=== PATIENT | female | born 1980 | race Caucasian/White ===

== ENCOUNTER 2021-07-02 07:25 | Emergency (ER) | payer OTHER, SELFPAY ==
--- NOTE | ~2021-07-02 | US_ITS ---
EXAMINATION: US PELVIS CLINICAL INFORMATION: Pelvic pain. Question ruptured ovarian cyst. COMPARISON: None. TECHNIQUE: Ultrasound of the pelvis is performed using both transabdominal and transvaginal transducers along with Doppler. Transvaginal imaging is performed due to inadequate visualization transabdominally. FINDINGS: Uterus: The uterus is anteverted anteflexed and measures 7.6 cm in length, 3.9 mL in AP and 5.5 cm in transverse dimension. The double wall endometrial thickness is 0.9 cm. The uterus is smooth in contour and has normal myometrial echogenicity. No visible fibroid. There are small nabothian cysts seen in the cervix. Adnexa: Both ovaries are visualized. There is normal color flow to the adnexa. There is no ovarian torsion. There is no pelvic ascites or fluid collection. Right ovary measures 4.2 x 2.6 x 2.9 cm and volume 16.6 mL. There is anechoic cyst measuring 2.7 x 2.0 x 2.3 cm. There is normal arterial and venous vascular flow seen on Doppler exam. Left ovary measures 3.0 x 2.0 x 1.6 cm and volume 7.7 mL. There is normal arterial and venous flow seen on Doppler exam. There is a small amount of free fluid surrounding the left adnexa and posterior uterus. US/US pelvic and transvaginal IMPRESSION: Small anechoic cyst right ovary likely corpus luteal cyst. Unremarkable left ovary and uterus. Small amount of free fluid in the left adnexa. Normal vascular flow seen to both ovaries.
--- NOTE | ~2021-07-02 | US_ITS ---
EXAMINATION: US PELVIS CLINICAL INFORMATION: Pelvic pain. Question ruptured ovarian cyst. COMPARISON: None. TECHNIQUE: Ultrasound of the pelvis is performed using both transabdominal and transvaginal transducers along with Doppler. Transvaginal imaging is performed due to inadequate visualization transabdominally. FINDINGS: Uterus: The uterus is anteverted anteflexed and measures 7.6 cm in length, 3.9 mL in AP and 5.5 cm in transverse dimension. The double wall endometrial thickness is 0.9 cm. The uterus is smooth in contour and has normal myometrial echogenicity. No visible fibroid. There are small nabothian cysts seen in the cervix. Adnexa: Both ovaries are visualized. There is normal color flow to the adnexa. There is no ovarian torsion. There is no pelvic ascites or fluid collection. Right ovary measures 4.2 x 2.6 x 2.9 cm and volume 16.6 mL. There is anechoic cyst measuring 2.7 x 2.0 x 2.3 cm. There is normal arterial and venous vascular flow seen on Doppler exam. Left ovary measures 3.0 x 2.0 x 1.6 cm and volume 7.7 mL. There is normal arterial and venous flow seen on Doppler exam. There is a small amount of free fluid surrounding the left adnexa and posterior uterus. US/US pelvic ovarian doppler IMPRESSION: Small anechoic cyst right ovary likely corpus luteal cyst. Unremarkable left ovary and uterus. Small amount of free fluid in the left adnexa. Normal vascular flow seen to both ovaries.
[2021-07-02 07:38] VITALS: BP 136/92; PULSE 88; RESP 16; TEMP 36.1; O2SAT 99; BMI 34.9
[2021-07-02 08:00] LABS: MANUAL DIFF FLAG NO
[2021-07-02 08:01] LABS: Basophils Percent Auto 0.3 % (0-2); Eosinophils Absolute Auto 0.2 X10*3/uL (0.0-0.4); Eosinophils Percent Auto 2.7 % (0-4); Hematocrit 42.1 % (37.0-47.0); Hemoglobin 14.4 g/dl (12.0-16.0); Imm Gran Abs Auto 0.02 X10*3/uL (0.00-0.03); Imm Gran Pct Auto 0.3 % (0.0-0.4); Lymphocytes Absolute Auto 1.9 X10*3/uL (1.2-4.9); Lymphocytes Percent Auto 25.9 % (20-40); Mean Corpuscular HGB Conc 34.2 g/dl (31.0-35.0); Mean Corpuscular Hemoglobin 30.4 pg (27.0-33.0); Mean Corpuscular Volume 88.8 fL (80.0-98.0); Mean Platelet Volume 11.6 fL (9.4-12.3); Monocytes Absolute Auto 0.5 X10*3/uL (0.1-1.2); Monocytes Percent Auto 6.4 % (2-11); Neutrophils Absolute Auto 4.7 x10*3/uL (2.0-8.3); Neutrophils Percent Auto 64.4 % (45-73); Platelet Count 252 X10*3/uL (160-400); Red Blood Count 4.74 X10*6/uL (4.20-5.50); Red Cell Distribution Width 12.8 % (11.0-16.0); White Blood Count 7.3 X10*3/uL (4.8-10.8)
[2021-07-02 08:02] LABS: Appearance Urine HAZY; Color Urine YELLOW; Glucose Urine UA NEG (NEG); Leukocyte Esterase Urine NEG (NEG); Nitrite Urine NEG (NEG); PH 5.5 (5.0-8.0); Specific Gravity - Urine >= 1.030 (1.005-1.025); UACC Culture Trigger NO; Urine Blood 1+ (NEG); Urine Ketones NEG (NEG); Urine Protein NEG (NEG-TRACE)
[2021-07-02 08:06] LABS: UPreg QC Valid YES; Urine Pregnancy NEGATIVE (NEGATIVE)
[2021-07-02 08:14] LABS: Mucus Urine TRACE /LPF; RBC Urine 0-2 /HPF (0); Squamous Epithelial Cell Urine TRACE /LPF; WBC Urine 0 /HPF (0-4)
[2021-07-02 08:21] LABS: Alanine Aminotransferase 27 U/L (0-31); Albumin Level 4.7 g/dL (3.5-5.0); Alkaline Phosphatase 55 U/L (39-117); Anion Gap 14 (12-20); Aspartate Amino Transferase 19 U/L (5-31); Bilirubin Total 0.5 mg/dL (0.0-1.0); Blood Urea Nitrogen 15 mg/dL (9-16); Calcium 10.6 mg/dL (8.4-10.2); Carbon Dioxide 25 mmol/L (22-29); Chloride 102 mmol/L (96-108); Creatinine Clr Calc Pharmacy 99.5; Estimated Glomerular Filt Rate > 60; Glucose Random 116 mg/dL (60-115); Lipase 22 U/L (8-78); Potassium 4.4 mmol/L (3.3-5.1); Sodium 137 mmol/L (135-145); Total Protein 7.9 g/dL (6.5-8.0)
--- NOTE | 2021-07-02 09:08 | ED.ABDPAIN ---
HPI - Abdominal Pain General Chief Complaint: Abdominal Pain Stated Complaint: abd pain Time Seen by Provider: 07/02/21 08:43 Source: patient Mode of arrival: ambulatory Limitations: no limitations History of Present Illness HPI narrative: Patient is a 40-year-old female with a past medical history of GERD and migraines. She presents emergency department for evaluation of diffuse lower abdominal pain. She reports onset of lower abdominal pain to be about 2 hours ago, which was 15 minutes after having sexual intercourse. The pain has been constant but varying in intensity. It is described as cramping in nature and she feels pressure when sitting. Certain positions seem to make the pain worse at times. Pain radiates throughout her abdomen into the bilateral upper legs. Pain is currently a 6/10. There has been some associated nausea but no vomiting. Denies fevers, chills, dysuria, urinary frequency/urgency/hesitancy/abnormal vaginal bleeding/abnormal vaginal discharge. Denies possibility of , reports 1 single partner who is s/p vasectomy, she is not on any form of contraception. Denies any prior concerns of dyspareunia, prior sexually transmitted infection, nor concerns for current sexually transmitted infection. Denies possibility of foreign body within the vaginal canal after intercourse. Last menstrual period was approximately 3 weeks ago, and states her next is due within 1 week. Related Data Allergies Allergy/AdvReac Type Severity Reaction Status Date / Time Iodinated Contrast Media Allergy Anaphylaxis Verified 07/02/21 07:44 Review of Systems Review of Systems Constitutional : No Weight loss, No Fever, No Chills ENT/Mouth :? No sore throat, No Rhinorrhea Eyes: No Swelling, No Redness Cardiovascular : No Chest Pain, No SOB, No Edema Respiratory : No Cough, No Sputum, No Wheezing Gastrointestinal : Positive Nausea, no Vomiting, no Diarrhea, positive abdominal pain, No Hematochezia, No Melena Genitourinary : No Dysuria, No Urinary Frequency, No Hematuria, No Urgency? Musculoskeletal : No joint pain, No Myalgias, No Joint Swelling Skin : No Skin Lesions, No rash Neuro : No Weakness, No Numbness, No Dizziness, No Headache Psych : No Anxiety/Panic, No Depression Heme/Lymph: No Bruising, No Lymphadenopathy Endocrine : No Polyuria, No Polydipsia All other systems reviewed and are negative. [facility] Past Medical History Attestation statement: The following information was validated with the patient. Source: old records reviewed Medical History GERD (gastroesophageal reflux disease) Migraine Social History Social History Alcohol intake: current Alcohol intake frequency: holidays/special occasions only Patient Tobacco Use Status: Never used Tobacco Use of substances other than those prescribed or required for medical reasons: No Advance Directives: No Advance Directives Information Provided: No Patient : No Physical Exam ED Vital Signs: Vital Signs - 24 hr 07/02/21 07:38 07/02/21 12:00 07/02/21 14:00 Temperature 97.0 F 99.0 F 98.1 F Pulse Rate 88 75 75 Respiratory Rate 16 18 18 Blood Pressure 136/92 H 114/49 L 127/67 Pulse Oximetry 99 98 100 BMI result Body Mass Index 34.9 Vital signs have been reviewed as normal and appeared to be correct. Blood pressure normal.? Heart rate normal.? Respiration rate normal. Temperature normal.? Oxygen saturation normal. Appearance: Alert.?Oriented to person, place and time. No acute distress.?Normal affect. Eyes: Pupils equal, round and reactive to light.? ENT: Pharynx normal.?? Neck: Normal inspection.? Neck supple.?? CVS: Heart sounds normal. Normal heart rate and rhythm.? Pulses normal.?? Respiratory: No respiratory distress.? Lung sounds clear to auscultation bilaterally?? Abdomen: Soft with diffuse lower abdominal suprapubic tenderness. Normoactive bowel sounds. No pulsatile mass.?? Genitourinary:? Supervised by Ifrah EASLEY. Normal external appearance of urethra.? No lesions/lacerations or discharge or tenderness noted. No Bartholin cyst noted.? Speculum exam: normal appearance/palpation of vagina normal. No abnormal vaginal discharge, swelling, erythema, laceratons, or active bleeding noted.?No foreign bodies noted.? No vaginal tenderness noted.? Normal appearance of cervix. Normal palpation of cervix.? Cervical os is closed.? No abnormal cervical discharge noted.? No cervical lesion/mass.?? No cervical motion tenderness noted.? Negative chandelier sign.? Normal bimanual exam.? Uterine size normal. Uterine consistency normal.? Bladder normal to palpation. Normal adnexa. Normal rectovaginal exam. Skin: Skin warm and dry.? Normal skin color.? Normal skin turgor.?? Extremities: No lower extremity edema.? Neuro: Moves all extremities spontaneously. Sensation intact bilaterally. CN II-XII intact. No focal neuro deficits. Ambulates with normal steady gait. Course Course Course Narrative: Patient is a 40-year-old female being evaluated for lower abdominal pain. History physical exam are not consistent with appendicitis given no rebound tenderness, not consistent with diverticulitis given no fever/ chills/ diarrhea/ bloody or mucous stools. Not consistent with GI bleed, AAA, ectopic , hernia, bowel obstruction. Would not completely exclude nephrolithiasis though it is less likely at this time. Will obtain pelvic ultrasound to evaluate for ruptured ovarian cyst or possible ovarian torsion. Will perform pelvic examination as discussed with patient, though she would like to wait until pain is improved. Patient to receive IV Zofran for nausea, IV Toradol for pain, and 1 L IV normal saline. Disposition will be pending results. Reevaluation(s) Reevaluation #1: CBC and BMP are overall unremarkable. Urinalysis is free from infection although there is the presence of 1+ blood in the setting of no menstrual bleeding, urine test is negative. Pelvic and bimanual exam without any abnormal findings. Bacteril Vaginosis panel specimen obtained. Patient offered Chlamydia and gonorrhea testing but declined. Pain has improved after medicated, currently 3/10. Ultrasound results are pending at this time. Time: 10:16 Reevaluation #2: Contacted Radiology as ultrasound report still pending at this time, advised that ultrasound is awaiting signature. Continues to be well-appearing, afebrile, vitals stable, without any acute concerns. Time: 14:05 Reevaluation #3: Ultrasound reveals a small cyst of right ovary and a small amount of free fluid in the left adnexa otherwise unremarkable, no concern for ovarian torsion. Discussed all lab result and image results findings with patient and her . Advise that the cause of her symptoms are unclear at this time. Advised that she could follow-up with display manager for persistent symptoms however patient declines referral at this time states she would rather follow up with her primary care provider, advised her to contact the office to scheduled follow-up visit in 1-3 days. Discussed that she may utilize Tylenol or ibuprofen as needed for discomfort. Offered prescription for antiemetic however patient declined. Discussed reasons to return to the emergency department including fevers, chills, nausea, vomiting, severe worsening abdominal/pelvic pain, abnormal vaginal bleeding or discharge, urinary symptoms. Advised that bacterial vaginosis panel is still pending at this time, should the result is positive she will receive a follow-up phone call, will not prophylactically treat at this time given low suspicion. Patient is agreeable with plan of care. Time: 15:51 MDM - Abdominal Pain Medical Records Attestation: I reviewed the patient's medical records. Lab Data Attestation: I reviewed the patient's lab results. Result diagrams: 07/02/21 07:48 07/02/21 07:48 Labs: Lab Results 07/02/21 07/02/21 07/02/21 Range/Units 07:48 07:48 07:55 WBC 7.3 (4.8-10.8) X10*3/uL RBC 4.74 (4.20-5.50) X10*6/uL Hgb 14.4 (12.0-16.0) g/dl Hct 42.1 (37.0-47.0) % MCV 88.8 (80.0-98.0) fL MCH 30.4 (27.0-33.0) pg MCHC 34.2 (31.0-35.0) g/dl RDW 12.8 (11.0-16.0) % Plt Count 252 (160-400) X10*3/uL MPV 11.6 (9.4-12.3) fL Immature Gran % (Auto) 0.3 (0.0-0.4) % Neut % (Auto) 64.4 (45-73) % Lymph % (Auto) 25.9 (20-40) % [place] % (Auto) 6.4 (2-11) % Eos % (Auto) 2.7 (0-4) % Baso % (Auto) 0.3 (0-2) % Lymph # (Auto) 1.9 (1.2-4.9) X10*3/uL [place] # (Auto) 0.5 (0.1-1.2) X10*3/uL Eos # (Auto) 0.2 (0.0-0.4) X10*3/uL Baso # (Auto) 0.0 (0.0-0.2) X10*3/uL Abs Immat Gran (auto) 0.02 (0.00-0.03) X10*3/uL Absolute Neuts (auto) 4.7 (2.0-8.3) x10*3/uL Absolute Nucleated RBC 0.000 (0.0-0.012) X10*3/uL Nucleated RBC % (auto) 0.0 (0.0-0.2) /100WBC Sodium 137 (135-145) mmol/L Potassium 4.4 (3.3-5.1) mmol/L Chloride 102 (96-108) mmol/L Carbon Dioxide 25 (22-29) mmol/L Anion Gap 14 (12-20) BUN 15 (9-16) mg/dL Creatinine 0.96 (0.5-1.4) mg/dL Estim Creat Clear Calc 99.5 Estimated GFR > 60 Random Glucose 116 H (60-115) mg/dL Calcium 10.6 H (8.4-10.2) mg/dL Total Bilirubin 0.5 (0.0-1.0) mg/dL AST 19 (5-31) U/L ALT 27 (0-31) U/L Alkaline Phosphatase 55 (39-117) U/L Total Protein 7.9 (6.5-8.0) g/dL Albumin 4.7 (3.5-5.0) g/dL Lipase 22 (8-78) U/L Urine Color YELLOW Urine Appearance HAZY Urine pH 5.5 (5.0-8.0) Ur Specific Morton >= 1.030 H (1.005-1.025) Urine Protein NEG (NEG-TRACE) MG/DL Urine Glucose (UA) NEG (NEG) MG/DL Urine Ketones NEG (NEG) MG/DL Urine Blood 1+ H (NEG) Urine Nitrite NEG (NEG) Ur Leukocyte Esterase NEG (NEG) Urine RBC 0-2 (0) /HPF Urine WBC 0 (0-4) /HPF Ur Squamous Epith Cells TRACE /LPF Urine Bacteria NONE /LPF Urine Mucus TRACE /LPF Urine Test (NEGATIVE) 07/02/21 Range/Units 07:55 WBC (4.8-10.8) X10*3/uL RBC (4.20-5.50) X10*6/uL Hgb (12.0-16.0) g/dl Hct (37.0-47.0) % MCV (80.0-98.0) fL MCH (27.0-33.0) pg MCHC (31.0-35.0) g/dl RDW (11.0-16.0) % Plt Count (160-400) X10*3/uL MPV (9.4-12.3) fL Immature Gran % (Auto) (0.0-0.4) % Neut % (Auto) (45-73) % Lymph % (Auto) (20-40) % [place] % (Auto) (2-11) % Eos % (Auto) (0-4) % Baso % (Auto) (0-2) % Lymph # (Auto) (1.2-4.9) X10*3/uL [place] # (Auto) (0.1-1.2) X10*3/uL Eos # (Auto) (0.0-0.4) X10*3/uL Baso # (Auto) (0.0-0.2) X10*3/uL Abs Immat Gran (auto) (0.00-0.03) X10*3/uL Absolute Neuts (auto) (2.0-8.3) x10*3/uL Absolute Nucleated RBC (0.0-0.012) X10*3/uL Nucleated RBC % (auto) (0.0-0.2) /100WBC Sodium (135-145) mmol/L Potassium (3.3-5.1) mmol/L Chloride (96-108) mmol/L Carbon Dioxide (22-29) mmol/L Anion Gap (12-20) BUN (9-16) mg/dL Creatinine (0.5-1.4) mg/dL Estim Creat Clear Calc Estimated GFR Random Glucose (60-115) mg/dL Calcium (8.4-10.2) mg/dL Total Bilirubin (0.0-1.0) mg/dL AST (5-31) U/L ALT (0-31) U/L Alkaline Phosphatase (39-117) U/L Total Protein (6.5-8.0) g/dL Albumin (3.5-5.0) g/dL Lipase (8-78) U/L Urine Color Urine Appearance Urine pH (5.0-8.0) Ur Specific Morton (1.005-1.025) Urine Protein (NEG-TRACE) MG/DL Urine Glucose (UA) (NEG) MG/DL Urine Ketones (NEG) MG/DL Urine Blood (NEG) Urine Nitrite (NEG) Ur Leukocyte Esterase (NEG) Urine RBC (0) /HPF Urine WBC (0-4) /HPF Ur Squamous Epith Cells /LPF Urine Bacteria /LPF Urine Mucus /LPF Urine Test NEGATIVE (NEGATIVE) Imaging Data pelvic US: Radiologist's impression: IMPRESSION: Small anechoic cyst right ovary likely corpus luteal cyst. ? Unremarkable left ovary and uterus. ? Small amount of free fluid in the left adnexa. Normal vascular flow seen to both ovaries. Discharge Plan Discharge Clinical Impression: Pelvic pain Patient Disposition: Home, Self-Care Additional Instructions: You were evaluated in the emergency department for your lower abdominal/pelvic pain. Your blood work was normal. You do not have a urinary tract infection. We sent a specimen to check for bacterial vaginosis and vaginal yeast infection but these results do not come back for 2 days. Should they result positive you will receive a telephone call the hospital. This time I do not have a high suspicion to consider prophylactic treatment. The ultrasound that we obtained does reveal a cyst on your right ovary. At this time it is uncertain the cause of your pain, it is possible that this is due to your menstrual cramping. Please contact your primary care provider to schedule follow-up appointment in 1-3 days. If you develops any new or worsening symptoms or concerns you may always return to the emergency department.
[2021-07-02] MEDS: ondansetron HCL 4 MG/2 ML VIAL IVPUSH (09:22)
[2021-07-02] MEDS: Ketorolac Tromethamine 30 MG/ML VIAL IVPUSH (09:22)
[2021-07-02] MEDS: 0.9 % Sodium Chloride 1,000 ML 999 ML IV (09:26)
[2021-07-02 12:00] VITALS: BP 114/49; PULSE 75; RESP 18; TEMP 37.2; O2SAT 98
--- NOTE | 2021-07-02 12:42 | PC.NURSE ---
pt a&ox3, pain improved with medications, vss, pelvic exam performed - morning RN in room w provider, swabs sent to lab, will continue to monitor.
[2021-07-02 14:00] VITALS: BP 127/67; PULSE 75; RESP 18; TEMP 36.7; O2SAT 100
--- NOTE | 2021-07-02 14:10 | PC.NURSE ---
patient a&ox3, vss, family at bedside, pt awaiting results of US, call monae within reach, will continue to monitor.
--- NOTE | 2021-07-02 14:45 | PC.NURSE ---
[facility] has been called multiple times by provider, still awaiting results of ultrasound.
[2021-07-03 13:06] LABS: BV Int Neg Control Negative (Negative); BV Int Pos Control Positive (Positive)
== END 2021-07-02 16:03 | disposition home or self-care (01) ==
PROVIDERS: Nurse Practitioner Family; Emergency Provider Emergency Medicine; PCP Nurse Practitioner Adult Health
DX: R10.2 Pelvic and perineal pain (principal); N76.0 Acute vaginitis; B96.89 Other specified bacterial agents as the cause of diseases classified elsewhere; N83.201 Unspecified ovarian cyst, right side
CPT/HCPCS: 36415; 76830; 76856; 80053; 81001; 81003; 81025; 83690; 85025; 87480; 87510; 87660; 93975; 96361; 96374; 96375; 99284; J1885; J2405

== ENCOUNTER 2022-07-26 14:55 | Emergency (ER) | payer OTHER, SELFPAY ==
--- NOTE | ~2022-07-26 | XR_ITS ---
EXAMINATION: XR CHEST CLINICAL INFORMATION: Chest pain. COMPARISON: None available. TECHNIQUE: Frontal view of the chest was obtained. FINDINGS: No significant abnormality is noted involving the heart, lungs, mediastinum, bony thorax or soft tissues. XR/XR chest 1V IMPRESSION: No acute cardiopulmonary process.
--- NOTE | 2022-07-26 14:57 | ECG_ITS ---
Test Reason : CP Blood Pressure : / mmHG Vent. Rate : 083 BPM Atrial Rate : 083 BPM P-R Int : 190 ms QRS Dur : 092 ms QT Int : 400 ms P-R-T Axes : 041 021 014 degrees QTc Int : 470 ms Normal sinus rhythm Possible Left atrial enlargement Low voltage QRS Cannot rule out Anterior infarct , age undetermined Abnormal ECG No previous ECGs available Referred By: Huang Stahl Electronically Signed By:LINDA VILLA MD
--- NOTE | 2022-07-26 15:00 | ED.CHESTPAIN ---
HPI - Chest Pain General Chief Complaint: General Medical <ANOOP Toro - Last Filed: 07/26/22 15:34> Stated Complaint: chest pain <ANOOP Toro - Last Filed: 07/26/22 15:34> Time Seen by Provider: 07/26/22 18:32 <ANOOP Toro - Last Filed: 07/26/22 15:34> Source: patient <Nathan Momin MD - Last Filed: 07/26/22 19:22> Mode of arrival: ambulatory <Nathan Momin MD - Last Filed: 07/26/22 19:22> Limitations: no limitations <Nathan Momin MD - Last Filed: 07/26/22 19:22> History of Present Illness HPI narrative: Patient with history of GERD on Prilosec 20 mg daily complaining of pain in epigastric area and bilateral lower chest for last 3 weeks after traveling to [place] no leg pain no shortness of breath pain is sharp in character and burning sensation in epigastric area no diaphoresis slight nausea no vomiting no known cardiac disease or risk factors. Pain gets worse after eating food <Nathan Momin MD - Last Filed: 07/26/22 19:22> Related Data Home Medications: Previous Rx's Medication Instructions Recorded metronidazole 500 mg tablet 500 mg PO BID 7 days #14 tabs 07/05/21 sucralfate 1 gram tablet 1 g PO TID #90 tabs 07/26/22 <ANOOP Toro Last Filed: 07/26/22 15:34> Allergies/Adverse Reactions: Allergies Allergy/AdvReac Type Severity Reaction Status Date / Time Iodinated Contrast Media Allergy Anaphylaxis Verified 07/02/21 07:44 <ANOOP Toro Last Filed: 07/26/22 15:34> Review of Systems Review of Systems: Constitutional : No Weight loss, No Fever, No Chills ENT/Mouth : No sore throat, No Rhinorrhea Eyes: No Eye Pain, No Swelling Cardiovascular : + Chest Pain, no palpitations Respiratory : No Cough, No Sputum, no shortness of breath Gastrointestinal : no Nausea, No Vomiting, No Diarrhea, No abdominal Pain, no black stools Genitourinary : No Dysuria, No Urinary Frequency Musculoskeletal : No joint pain, No Myalgias, No Joint Swelling Skin : No Skin Lesions, No rash Neuro : No Weakness, No Numbness, No Dizziness, No Headache Psych : No Anxiety/Panic, No Depression Heme/Lymph: No Bruising, No Lymphadenopathy Endocrine : No Polyuria, No Polydipsia All other systems reviewed and are negative <Nathan Momin MD - Last Filed: 07/26/22 19:22> Yes all other systems are reviewed and are negative <Nathan Momin MD - Last Filed: 07/26/22 19:22> [facility] Past Medical History Medical History: Medical History GERD (gastroesophageal reflux disease) Migraine <ANOOP oTro - Last Filed: 07/26/22 15:34> Social History Social History: Social History Alcohol intake: never Patient Tobacco Use Status: Never used Tobacco Smoked in Last 30 Days: No Use of substances other than those prescribed or required for medical reasons: No Advance Directives: No Advance Directives Information Provided: Yes Patient : No <ANOOP Toro - Last Filed: 07/26/22 15:34> Physical Exam Vital Signs: Vital Signs: Last Vital Signs Temp 98.0 F 07/26/22 18:22 Pulse 82 07/26/22 18:22 Resp 18 07/26/22 18:22 BP 149/87 H 07/26/22 18:22 Pulse Ox 100 07/26/22 18:22 O2 Del Method 07/26/22 18:22 BMI result Body Mass Index 33.4 <ANOOP Toro - Last Filed: 07/26/22 15:34> Vital Signs: Last Vital Signs Temp 98.0 F 07/26/22 18:22 Pulse 82 07/26/22 18:22 Resp 18 07/26/22 18:22 BP 149/87 H 07/26/22 18:22 Pulse Ox 100 07/26/22 18:22 O2 Del Method 07/26/22 18:22 BMI result Body Mass Index 33.4 <Nathan Momin MD - Last Filed: 07/26/22 19:22> Appearance: Alert. Oriented X3. No acute distress. Eyes: PERRLA, No Nystagmus ENT: Pharynx normal. Oral Mucosa moist Neck: Normal inspection. Neck supple. CVS: Normal heart rate and rhythm. Pulses normal. Respiratory: No respiratory distress. Equal air entry bilateral, no wheezing/rales/rhonchi Abdomen: Soft epigastric tenderness++ Bowel sounds are present, no mass palpable, no CVA tenderness Skin: Skin warm and dry. Normal skin color. Normal skin turgor. Extremities: No lower extremity edema. No calf tenderness Neuro: Oriented X 3. No motor deficit. No sensory deficit. <Nathan Momin MD - Last Filed: 07/26/22 19:22> Course Course Course Narrative: This is an RME: Additional HPI, ROS, PE not included below will be deferred to primary provider. 41-year-old female presents chest pain, shortness of breath times a few weeks worsening the patient reports recent travel to [place] about a few weeks ago, discomfort has been present ever since. Denies lower extremity swelling, nausea, vomiting, abdominal pain, fevers, chills, headache, vision changes, calf pain Physical exam with anterior chest wall pain that is reproducible with palpation. Remainder of exam benign Plan labs, imaging, troponin, D-dimer. <ANOOP Toro - Last Filed: 07/26/22 15:34> Medical Decision Making Medical Decision Making [facility] Narrative: Patient has atypical chest pain normal EKG normal high sensitive troponin D-dimer negative for PE heart score of 0 discharge patient home advised to increase the dose of Prilosec to 40 mg and add sucralfate and follow-up with PCP <Nathan Momin MD - Last Filed: 07/26/22 19:22> Differential Diagnosis PE/ACS/gerd <Nathan Momin MD - Last Filed: 07/26/22 19:22> Lab Data [facility] Lab Attestation statement: I reviewed the patient's lab results. <Nathan Momin MD - Last Filed: 07/26/22 19:22> Result Diagrams: 07/26/22 16:03 07/26/22 16:03 <ANOOP Toro - Last Filed: 07/26/22 15:34> Labs: Lab Results 07/26/22 07/26/22 07/26/22 Range/Units 16:03 16:03 16:03 WBC 5.8 (4.8-10.8) X10*3/uL RBC 4.72 (4.20-5.50) X10*6/uL Hgb 14.3 (12.0-16.0) g/dl Hct 41.8 (37.0-47.0) % MCV 88.6 (80.0-98.0) fL MCH 30.3 (27.0-33.0) pg MCHC 34.2 (31.0-35.0) g/dl RDW 12.4 (11.0-16.0) % Plt Count 252 (160-400) X10*3/uL MPV 11.3 (9.4-12.3) fL Immature Gran % (Auto) 0.2 (0.0-0.4) % Neut % (Auto) 67.3 (45-73) % Lymph % (Auto) 24.5 (20-40) % [place] % (Auto) 5.1 (2-11) % Eos % (Auto) 2.6 (0-4) % Baso % (Auto) 0.3 (0-2) % Lymph # (Auto) 1.4 (1.2-4.9) X10*3/uL [place] # (Auto) 0.3 (0.1-1.2) X10*3/uL Eos # (Auto) 0.2 (0.0-0.4) X10*3/uL Baso # (Auto) 0.0 (0.0-0.2) X10*3/uL Abs Immat Gran (auto) 0.01 (0.00-0.03) X10*3/uL Absolute Neuts (auto) 3.9 (2.0-8.3) x10*3/uL Absolute Nucleated RBC 0.000 (0.0-0.012) X10*3/uL Nucleated RBC % (auto) 0.0 (0.0-0.2) /100WBC D-Dimer High Sensitivty NG/ML Sodium 139 (135-145) mmol/L Potassium 3.9 (3.3-5.1) mmol/L Chloride 104 (96-108) mmol/L Carbon Dioxide 25 (22-29) mmol/L Anion Gap 14 (12-20) BUN 11 (9-16) mg/dL Creatinine 0.89 (0.5-1.4) mg/dL Estim Creat Clear Calc 103.8 Estimated GFR > 60 Random Glucose 106 (60-115) mg/dL Calcium 9.4 D (8.4-10.2) mg/dL Magnesium 2.3 (1.6-2.6) mg/dL Total Bilirubin 0.5 (0.0-1.0) mg/dL AST 18 (5-31) U/L ALT 26 (0-31) U/L Alkaline Phosphatase 52 (39-117) U/L Troponin I High Sens < 3.5 (<3.5-17.0) ng/L B-Natriuretic Peptide (<100) pg/mL Total Protein 7.2 (6.5-8.0) g/dL Albumin 4.5 (3.5-5.0) g/dL COVID-19 ([facility]) (Negative) COVID-19 Clin Com 07/26/22 07/26/22 07/26/22 Range/Units 16:03 16:03 16:03 WBC (4.8-10.8) X10*3/uL RBC (4.20-5.50) X10*6/uL Hgb (12.0-16.0) g/dl Hct (37.0-47.0) % MCV (80.0-98.0) fL MCH (27.0-33.0) pg MCHC (31.0-35.0) g/dl RDW (11.0-16.0) % Plt Count (160-400) X10*3/uL MPV (9.4-12.3) fL Immature Gran % (Auto) (0.0-0.4) % Neut % (Auto) (45-73) % Lymph % (Auto) (20-40) % [place] % (Auto) (2-11) % Eos % (Auto) (0-4) % Baso % (Auto) (0-2) % Lymph # (Auto) (1.2-4.9) X10*3/uL [place] # (Auto) (0.1-1.2) X10*3/uL Eos # (Auto) (0.0-0.4) X10*3/uL Baso # (Auto) (0.0-0.2) X10*3/uL Abs Immat Gran (auto) (0.00-0.03) X10*3/uL Absolute Neuts (auto) (2.0-8.3) x10*3/uL Absolute Nucleated RBC (0.0-0.012) X10*3/uL Nucleated RBC % (auto) (0.0-0.2) /100WBC D-Dimer High Sensitivty < 150 NG/ML Sodium (135-145) mmol/L Potassium (3.3-5.1) mmol/L Chloride (96-108) mmol/L Carbon Dioxide (22-29) mmol/L Anion Gap (12-20) BUN (9-16) mg/dL Creatinine (0.5-1.4) mg/dL Estim Creat Clear Calc Estimated GFR Random Glucose (60-115) mg/dL Calcium (8.4-10.2) mg/dL Magnesium (1.6-2.6) mg/dL Total Bilirubin (0.0-1.0) mg/dL AST (5-31) U/L ALT (0-31) U/L Alkaline Phosphatase (39-117) U/L Troponin I High Sens (<3.5-17.0) ng/L B-Natriuretic Peptide < 10 (<100) pg/mL Total Protein (6.5-8.0) g/dL Albumin (3.5-5.0) g/dL COVID-19 ([facility]) Negative (Negative) COVID-19 Clin Com See Note <ANOOP Toro - Last Filed: 07/26/22 15:34> Lab Results 07/26/22 07/26/22 07/26/22 Range/Units 16:03 16:03 16:03 WBC 5.8 (4.8-10.8) X10*3/uL RBC 4.72 (4.20-5.50) X10*6/uL Hgb 14.3 (12.0-16.0) g/dl Hct 41.8 (37.0-47.0) % MCV 88.6 (80.0-98.0) fL MCH 30.3 (27.0-33.0) pg MCHC 34.2 (31.0-35.0) g/dl RDW 12.4 (11.0-16.0) % Plt Count 252 (160-400) X10*3/uL MPV 11.3 (9.4-12.3) fL Immature Gran % (Auto) 0.2 (0.0-0.4) % Neut % (Auto) 67.3 (45-73) % Lymph % (Auto) 24.5 (20-40) % [place] % (Auto) 5.1 (2-11) % Eos % (Auto) 2.6 (0-4) % Baso % (Auto) 0.3 (0-2) % Lymph # (Auto) 1.4 (1.2-4.9) X10*3/uL [place] # (Auto) 0.3 (0.1-1.2) X10*3/uL Eos # (Auto) 0.2 (0.0-0.4) X10*3/uL Baso # (Auto) 0.0 (0.0-0.2) X10*3/uL Abs Immat Gran (auto) 0.01 (0.00-0.03) X10*3/uL Absolute Neuts (auto) 3.9 (2.0-8.3) x10*3/uL Absolute Nucleated RBC 0.000 (0.0-0.012) X10*3/uL Nucleated RBC % (auto) 0.0 (0.0-0.2) /100WBC D-Dimer High Sensitivty NG/ML Sodium 139 (135-145) mmol/L Potassium 3.9 (3.3-5.1) mmol/L Chloride 104 (96-108) mmol/L Carbon Dioxide 25 (22-29) mmol/L Anion Gap 14 (12-20) BUN 11 (9-16) mg/dL Creatinine 0.89 (0.5-1.4) mg/dL Estim Creat Clear Calc 103.8 Estimated GFR > 60 Random Glucose 106 (60-115) mg/dL Calcium 9.4 D (8.4-10.2) mg/dL Magnesium 2.3 (1.6-2.6) mg/dL Total Bilirubin 0.5 (0.0-1.0) mg/dL AST 18 (5-31) U/L ALT 26 (0-31) U/L Alkaline Phosphatase 52 (39-117) U/L Troponin I High Sens < 3.5 (<3.5-17.0) ng/L B-Natriuretic Peptide (<100) pg/mL Total Protein 7.2 (6.5-8.0) g/dL Albumin 4.5 (3.5-5.0) g/dL COVID-19 ([facility]) (Negative) COVID-19 Clin Com 07/26/22 07/26/22 07/26/22 Range/Units 16:03 16:03 16:03 WBC (4.8-10.8) X10*3/uL RBC (4.20-5.50) X10*6/uL Hgb (12.0-16.0) g/dl Hct (37.0-47.0) % MCV (80.0-98.0) fL MCH (27.0-33.0) pg MCHC (31.0-35.0) g/dl RDW (11.0-16.0) % Plt Count (160-400) X10*3/uL MPV (9.4-12.3) fL Immature Gran % (Auto) (0.0-0.4) % Neut % (Auto) (45-73) % Lymph % (Auto) (20-40) % [place] % (Auto) (2-11) % Eos % (Auto) (0-4) % Baso % (Auto) (0-2) % Lymph # (Auto) (1.2-4.9) X10*3/uL [place] # (Auto) (0.1-1.2) X10*3/uL Eos # (Auto) (0.0-0.4) X10*3/uL Baso # (Auto) (0.0-0.2) X10*3/uL Abs Immat Gran (auto) (0.00-0.03) X10*3/uL Absolute Neuts (auto) (2.0-8.3) x10*3/uL Absolute Nucleated RBC (0.0-0.012) X10*3/uL Nucleated RBC % (auto) (0.0-0.2) /100WBC D-Dimer High Sensitivty < 150 NG/ML Sodium (135-145) mmol/L Potassium (3.3-5.1) mmol/L Chloride (96-108) mmol/L Carbon Dioxide (22-29) mmol/L Anion Gap (12-20) BUN (9-16) mg/dL Creatinine (0.5-1.4) mg/dL Estim Creat Clear Calc Estimated GFR Random Glucose (60-115) mg/dL Calcium (8.4-10.2) mg/dL Magnesium (1.6-2.6) mg/dL Total Bilirubin (0.0-1.0) mg/dL AST (5-31) U/L ALT (0-31) U/L Alkaline Phosphatase (39-117) U/L Troponin I High Sens (<3.5-17.0) ng/L B-Natriuretic Peptide < 10 (<100) pg/mL Total Protein (6.5-8.0) g/dL Albumin (3.5-5.0) g/dL COVID-19 ([facility]) Negative (Negative) COVID-19 Clin Com See Note <Nathan Momin MD - Last Filed: 07/26/22 19:22> Independent Interpretation I performed an independent interpretation of an: EKG <Nathan Momin MD - Last Filed: 07/26/22 19:22> Interpretation: Normal sinus rhythm heart rate 83 beats per minute normal intervals normal axis no acute ST-T changes no acute ischemic <Nathan Momin MD - Last Filed: 07/26/22 19:22> Discharge Plan Discharge Clinical Impression: Chest pain due to gastrointestinal reflux disease <ANOOP Toro - Last Filed: 07/26/22 15:34> Patient Disposition: Home, Self-Care <ANOOP Toro - Last Filed: 07/26/22 15:34> Instructions: Gastroesophageal Reflux Disease (ED), Noncardiac Chest Pain (ED) <ANOOP Toro - Last Filed: 07/26/22 15:34> Additional Instructions: Avoid fried and spicy foods Increase Prilosec to 40 mg daily Take sucralfate 1 tablet half an hour before meals Drink plenty of fluids 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
[2022-07-26 15:33] VITALS: BP 143/87; PULSE 81; RESP 18; TEMP 36.7; O2SAT 97; BMI 33.4
[2022-07-26 16:12] LABS: MANUAL DIFF FLAG NO
[2022-07-26 16:14] LABS: Basophils Percent Auto 0.3 % (0-2); Eosinophils Absolute Auto 0.2 X10*3/uL (0.0-0.4); Eosinophils Percent Auto 2.6 % (0-4); Hematocrit 41.8 % (37.0-47.0); Hemoglobin 14.3 g/dl (12.0-16.0); Imm Gran Abs Auto 0.01 X10*3/uL (0.00-0.03); Imm Gran Pct Auto 0.2 % (0.0-0.4); Lymphocytes Absolute Auto 1.4 X10*3/uL (1.2-4.9); Lymphocytes Percent Auto 24.5 % (20-40); Mean Corpuscular HGB Conc 34.2 g/dl (31.0-35.0); Mean Corpuscular Hemoglobin 30.3 pg (27.0-33.0); Mean Corpuscular Volume 88.6 fL (80.0-98.0); Mean Platelet Volume 11.3 fL (9.4-12.3); Monocytes Absolute Auto 0.3 X10*3/uL (0.1-1.2); Monocytes Percent Auto 5.1 % (2-11); Neutrophils Absolute Auto 3.9 x10*3/uL (2.0-8.3); Neutrophils Percent Auto 67.3 % (45-73); Platelet Count 252 X10*3/uL (160-400); Red Blood Count 4.72 X10*6/uL (4.20-5.50); Red Cell Distribution Width 12.4 % (11.0-16.0); White Blood Count 5.8 X10*3/uL (4.8-10.8)
[2022-07-26 16:28] LABS: Alanine Aminotransferase 26 U/L (0-31); Albumin Level 4.5 g/dL (3.5-5.0); Alkaline Phosphatase 52 U/L (39-117); Anion Gap 14 (12-20); Aspartate Amino Transferase 18 U/L (5-31); Bilirubin Total 0.5 mg/dL (0.0-1.0); Blood Urea Nitrogen 11 mg/dL (9-16); Calcium 9.4 mg/dL (8.4-10.2); Carbon Dioxide 25 mmol/L (22-29); Chloride 104 mmol/L (96-108); Creatinine Clr Calc Pharmacy 103.8; Estimated Glomerular Filt Rate > 60; Glucose Random 106 mg/dL (60-115); Magnesium 2.3 mg/dL (1.6-2.6); Potassium 3.9 mmol/L (3.3-5.1); Sodium 139 mmol/L (135-145); Total Protein 7.2 g/dL (6.5-8.0)
[2022-07-26 16:34] LABS: B Type Natriuretic Peptide < 10 pg/mL (<100)
[2022-07-26 16:35] LABS: COVID-19 Test Negative (Negative); IDNOW Serial# BCCEAD1C
[2022-07-26 16:37] LABS: Troponin-I High Sensitivity < 3.5 ng/L (<3.5-17.0)
[2022-07-26 16:41] LABS: D Dimer High Sensitivity < 150 NG/ML
[2022-07-26 18:22] VITALS: BP 149/87; PULSE 77; PULSE 82; RESP 18; TEMP 36.7; O2SAT 100
[2022-07-26] MEDS: Magnesium Hydrox/Alum Hydrox 30 ML ORAL.SUSP PO (19:19)
--- NOTE | 2022-07-26 19:23 | PC.NURSE ---
Assumed care of pt. at 1900. Pt. sitting up in bed at this time. Reports pain 08/16. Pending d/c.
== END 2022-07-26 19:25 | disposition home or self-care (01) ==
PROVIDERS: Physician Assistant; Emergency Provider Internal Medicine; PCP Nurse Practitioner Adult Health
DX: R07.9 Chest pain, unspecified (principal); K21.9 Gastro-esophageal reflux disease without esophagitis; Z20.822 Contact with and (suspected) exposure to COVID-19
CPT/HCPCS: 36415; 71045; 80053; 83735; 83880; 84484; 85025; 85379; 87635; 93005; 99283; 99284